=== PATIENT | male | born 1965 | race Caucasian/White ===

== ENCOUNTER → 2020-12-05 | Outpatient (CLI) | payer OTHER ==
--- NOTE | 2020-12-06 04:59 | MR ---
EXAMINATION TYPE: MR liver wo/w con DATE OF EXAM: 12/05/2020 COMPARISON: None HISTORY: Liver cyst, abnormal CT CONTRAST: Standard multiplanar, multisequence MRI departmental protocol utilizing 9 mL intravenous Gadavist corey olinium contrast. Multiplanar multiecho imaging of the abdomen was performed without and with IV contrast. FINDINGS: Gallbladder appears normal. There is no evidence of pleural effusion. Spleen is intact. There is no e vidence of pancreatic mass. The stomach is intact. There is 1 cm nonenhancing rounded septated focus in the left lobe of the liver. This has high signal on T2 images and consistent with a cyst. There is 7 mm cyst in the inferior right lobe of the liver. There is no adrenal mass. Kidneys have normal size and contour. There is no hydronephrosis. There is 1.4 cm cyst upper pole of the right kidney. There is 5 mm cortical cyst posterior left kidney. There is 2.5 cm cortical cyst lower pole left kidney. There is no evidence of a solid renal mass. There is no retroperitoneal adenopathy. Contrast images show normal enhancement of the portal venous system. There is venous flow demonstrate d in the inferior vena cava. There is patency of the hepatic vein. There is no sign of ascites. IMPRESSION: There are hepatic and renal simple cysts. No evidence of a solid liver mass.
== END | disposition home or self-care (01) ==
LOC: RADMRIMAIN 06:54
PROVIDERS: ATTEND Family Medicine
DX: K76.89 Other specified diseases of liver (principal)
CPT/HCPCS: 74183; A9585